=== PATIENT | male | born 1955 | race Caucasian/White ===

== ENCOUNTER 2018-03-01 15:16 | Inpatient (IN) ==
[2018-03-01] MEDS ORDERED: Acetaminophen 325 MG Tablet PO ONE (17:28)
[2018-03-01] MEDS ORDERED: Piperacil/Tazo 4.5 GM Premix 4.5 GM/100 ML BAG IV.SIG STA (17:28)
[2018-03-01] MEDS ORDERED: Sod Chloride 0.9% Inj 1,000 ML IV.SIG SCH ×2 (17:30)
[2018-03-01 17:56] LABS: Bacteria,Urine Many /hpf; Bilirubin,Urine Negative (Negative); Clarity,Urine Hazy (Clear); Color,Urine Amber (Yellw/Straw); Glucose,Urine (UA) Negative (Negative); Hyaline Casts,Urine 1 /lpf (0-3); Leukocyte Esterase,Urine Moderate (Negative); Mucus,Urine Few /lpf (Occasional); Nitrite,Urine Negative (Negative); Specific Gravity,Urine 1.024 (1.002-1.035)
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
[2018-03-01 17:59] LABS: Baso % (Auto) 0.3 % (0.0-2.0); Eos % (Auto) 0.2 % (0.0-4.0); Hematocrit 39.8 % (39.0-51.0); Lymph # (Auto) 1.6 th/mm3 (1.0-4.8); Lymph % (Auto) 13.4 % (9.0-44.0); Mean Corpuscular HGB Conc 35.2 % (32.0-36.0); Mean Corpuscular Hemoglobin 31.2 pg (27.0-34.0); Mean Corpuscular Volume 88.7 fL (80.0-100.0); Mean Platelet Volume 8.6 fL (7.0-11.0); Mono # (Auto) 0.9 th/mm3 (0.0-0.9); Mono % (Auto) 7.6 % (0.0-8.0); Neut # (Auto) 9.5 th/mm3 (1.8-7.7); Neut % (Auto) 78.5 % (16.0-70.0); Platelet Count 224 th/mm3 (150-450); Red Blood Count 4.48 mil/mm3 (4.50-5.90); Red Cell Distribution Width 14.3 % (11.6-17.2)
--- NOTE | 2018-03-01 18:01 | XR ---
EXAM DATE: 03/01/2018 5:51 PM EDT AGE/SEX: 62 years / Male INDICATIONS: Fever. CLINICAL DATA: This is the patient's initial encounter. Patient reports that signs and symptoms have been present for 1 day and indicates a pain score of 0/10. MEDICAL/SURGICAL HISTORY: None. None. COMPARISON: No prior exams available for comparison. FINDINGS: A single AP view of the chest demonstrates the lungs to be symmetrically aerated without evidence of mass, infiltrate or effusion. The cardiomediastinal contours are unremarkable. Osseous structures a re intact. CONCLUSION: Negative examination. Electronically signed by: Alfonso Lujan MD 03/01/2018 6:00 PM EDT
[2018-03-01 18:41] LABS: Albumin 3.2 g/dL (3.4-5.0); Anion Gap 8 meq/L (5-15); Aspartate Aminotransferase 19 U/L (15-37); Blood Urea Nitrogen 29 mg/dL (7-18); Calcium 8.2 mg/dL (8.5-10.1); Carbon Dioxide 24.7 meq/L (21.0-32.0); Chloride 102 meq/L (98-107); Glomerular Filtration Rate 45 mL/min (>89); Glucose,Random 144 mg/dL (74-106); Potassium 3.8 meq/L (3.5-5.1); Sodium 135 meq/L (136-145)
[2018-03-01 18:45] LABS: Alanine Aminotransferase 29 U/L (12-78); Alkaline Phosphatase 84 U/L (45-117); Total Protein 7.1 g/dL (6.4-8.2)
[2018-03-01] MEDS ORDERED: Bisacodyl 10 MG Supp RECTAL PRN (19:53)
[2018-03-01] MEDS ORDERED: Temazepam 15 MG Capsule PO PRN (19:53)
[2018-03-01] MEDS ORDERED: Dextrose 50% in Water 50 ML Vial IV.PUSH PRN (19:53)
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
--- NOTE | 2018-03-01 20:17 | CT ---
EXAM DATE: 03/01/2018 7:28 PM EDT AGE/SEX: 62 years / Male INDICATIONS: Pyelonephritis. CLINICAL DATA: This is the patient's initial encounter. Patient reports that signs and symptoms have been present for 1 day and indicates a pain score of 6/10. MEDICAL/SURGICAL HISTORY: Diabetes. Hypertension. Spinal nerve disorder. . Knee surgery. RADIATION DOSE: 14.61 CTDI (mGy) COMPARISON: No prior exams available for comparison. TECHNIQUE: Multiple contiguous axial images were obtained through the abdomen. Images were obtained using multiple row detector helical technique. Using automated exposure control and adjustment of the mA and/or kV according to patient size, radiation dose was kept as low as reasonably achievable to o btain optimal diagnostic quality images. DICOM format image data is available electronically for rev iew and comparison. FINDINGS: Lung bases are clear except for minimal dependent atelectasis and small calcified granuloma in the ri ght. No acute findings in the liver, spleen, adrenals or pancreas. There is some perinephric fat stranding bilaterally which is nonspecific but could indicate pyeloneph ritis given the history of such. Probable small 1 cm hemorrhagic cyst right kidney. No hydronephrosis . No ureteral or bladder calculi. Escalera catheter is present in the bladder. No pelvic mass or free flui d. CONCLUSION: 1. Nonspecific perinephric fat stranding. Differential diagnosis includes pyelonephritis given the h istory of such. 2. No renal calculi or obstructive uropathy. Escalera catheter in bladder. 3. Mild constipation. Moderate coronary calcifications. Electronically signed by: Alfonso Lujan MD 03/01/2018 8:16 PM EDT
[2018-03-01] MEDS: Senna/Docusate Sodium 8.6/50 MG Tablet PO SCH (21:32)
[2018-03-01] MEDS: Insulin NovoLOG Aspart Correctional Sugar Inj SQ SCH (21:32)
[2018-03-01] MEDS: Sod Chloride 0.9% Inj 1,000 ML IV.CONT SCH (21:39)
[2018-03-01] MEDS: Piperacil/Tazo 4.5 GM Premix 4.5 GM/100 ML BAG IV.SIG SCH (23:20)
[2018-03-02] MEDS: Acetaminophen 325 MG Tablet PO PRN ×3 (01:10→21:11)
[2018-03-02 04:11] LABS: Baso % (Auto) 0.2 % (0.0-2.0); Eos % (Auto) 0.1 % (0.0-4.0); Hematocrit 37.2 % (39.0-51.0); Hemoglobin 12.7 gm/dL (13.0-17.0); Lymph # (Auto) 1.2 th/mm3 (1.0-4.8); Mean Corpuscular Hemoglobin 30.7 pg (27.0-34.0); Mean Corpuscular Volume 90.3 fL (80.0-100.0); Mean Platelet Volume 7.9 fL (7.0-11.0); Neut # (Auto) 7.5 th/mm3 (1.8-7.7); Neut % (Auto) 77.7 % (16.0-70.0); Platelet Count 202 th/mm3 (150-450); Red Blood Count 4.12 mil/mm3 (4.50-5.90); Red Cell Distribution Width 13.4 % (11.6-17.2); White Blood Count 9.6 th/mm3 (4.0-11.0)
[2018-03-02 04:26] LABS: Albumin 3.2 g/dL (3.4-5.0); Anion Gap 11 meq/L (5-15); Aspartate Aminotransferase 21 U/L (15-37); Blood Urea Nitrogen 24 mg/dL (7-18); Calcium 8.5 mg/dL (8.5-10.1); Carbon Dioxide 22.4 meq/L (21.0-32.0); Chloride 101 meq/L (98-107); Glomerular Filtration Rate 52 mL/min (>89); Glucose,Random 183 mg/dL (74-106); Sodium 134 meq/L (136-145)
[2018-03-02 04:27] LABS: Alanine Aminotransferase 30 U/L (12-78)
[2018-03-02 04:30] LABS: Alkaline Phosphatase 88 U/L (45-117); Total Protein 7.4 g/dL (6.4-8.2)
[2018-03-02] MEDS: Piperacil/Tazo 4.5 GM Premix 4.5 GM/100 ML BAG IV.SIG SCH ×4 (05:55→22:27)
[2018-03-02] MEDS: Gabapentin 400 MG Capsule PO SCH ×3 (09:26→17:09)
[2018-03-02] MEDS: Insulin NovoLOG Aspart Correctional Sugar Inj SQ SCH ×4 (09:28→22:28)
[2018-03-02] MEDS: Senna/Docusate Sodium 8.6/50 MG Tablet PO SCH ×2 (10:58→22:29)
--- NOTE | 2018-03-02 14:07 | ECG ---
Date Performed: 03/01/2018 Time Performed: 17:53:58 PTAGE: 62 years EKG: SINUS TACHYCARDIA ABNORMAL RHYTHM ECG Artifact NO PREVIOUS TRACING DOCTOR: Shara Prieto Interpretating Date/Time 03/02/2018 14:07:13
--- NOTE | 2018-03-02 14:41 | P.PN ---
Subjective Interval history: t max 101.2 denies a y nausea, vomiting + chilly sensation had loose stools overnight- was given stool softeners Physical Exam Vital signs: Vital Signs 03/01/18 15:25 03/01/18 17:57 03/01/18 17:58 Temperature 101.1 F H Pulse Rate 93 H 104 H 104 H Respiratory Rate 20 20 Blood Pressure 119/60 146/66 H Pulse Oximetry 97 98 03/01/18 18:20 03/01/18 18:29 03/01/18 18:43 Temperature 100.4 F H Pulse Rate 94 H Respiratory Rate 22 Blood Pressure 141/64 H Pulse Oximetry 97 97 03/01/18 20:00 03/01/18 23:45 03/02/18 00:00 Temperature 98.6 F 101.1 F H Pulse Rate 85 96 H 99 H Respiratory Rate 20 20 Blood Pressure 160/77 H 180/81 H Pulse Oximetry 98 97 03/02/18 04:00 03/02/18 04:08 03/02/18 08:00 Temperature 98.9 F 99.4 F Pulse Rate 90 93 H 91 H Respiratory Rate 18 20 Blood Pressure 158/79 H 155/72 H Pulse Oximetry 92 L 97 03/02/18 12:00 Temperature 101.2 F H Pulse Rate 93 H Respiratory Rate 20 Blood Pressure 169/77 H Pulse Oximetry 96 Intake & Output 03/01/18 03/02/18 03/02/18 18:59 06:59 18:59 Intake Total 2099 / 2100 580 / 580 1200 / 1200 Output Total 1100 / 1100 Balance 2099 / 2099 -520 / -520 1200 / 1200 Weight 95.254 kg 95.9 kg Intake: IV 2100 / 2100 100 / 100 1200 / 1200 NS Inj 1,000 ML @ 100 mls/hr IV 1000 / 1000 .CONT .Q10H JOSE Rx#:[id number] Zosyn 4.5 GM Premix 4.5 gm In 100 / 100 100 / 100 200 / 200 100 ml @ 200 mls/hr IV.SIG Q6H JOSE Rx#:[id number] NS Inj 1,000 ML @ Wide Open IV. 1999 / 1999 SIG .Q0M JOSE Rx#:[id number] Oral 480 / 480 Output: Urine Amount (Catheter) 1099 / 1099 Indwelling Urethral Catheter 1099 / 1099 Other: Weight On Admission 95.9 kg Narrative: awake and alert, no acute distress T max 101 anixcteric lungs- no rales regualr rhythm abdomen soft, nontender abdomen soft, no CVA tenderness circumcised penis- rios in place neuro exma- unremarkable - Urinary Catheter Management Indwelling Urethral Catheter Cath placed during this visit: yes Reason for continuing: Acute urinary retention Insertion date: 03/01/18 Insertion time: 17:59 Results - Labs CBC & Chem 7: 03/02/18 03:50 03/02/18 03:50 Laboratory Results - last 24 hr 03/01/18 03/01/18 03/01/18 17:30 17:34 18:15 WBC 12.0 H RBC 4.48 L Hgb 14.0 Hct 39.8 MCV 88.7 MCH 31.2 MCHC 35.2 RDW 14.3 Plt Count 224 MPV 8.6 Neut % (Auto) 78.5 H Lymph % (Auto) 13.4 Gordon % (Auto) 7.6 Eos % (Auto) 0.2 Baso % (Auto) 0.3 Neut # (Auto) 9.5 H Lymph # (Auto) 1.6 Gordon # (Auto) 0.9 Eos # (Auto) 0.0 Baso # (Auto) 0.0 WBC Differential . Differential Comment Auto diff final Sodium 135 L Potassium 3.8 Chloride 102 Carbon Dioxide 24.7 Anion Gap 8 BUN 29 H Creatinine 1.56 H Estimated GFR 45 L POC Glucose Random Glucose 144 H Lactic Acid Calcium 8.2 L Total Bilirubin 0.7 AST 19 ALT 29 Alkaline Phosphatase 84 Total Protein 7.1 Albumin 3.2 L Urine Color Iva Urine Clarity Hazy H Urine pH 5.0 Ur Specific [place] 1.024 Urine Protein 30 H Urine Glucose (UA) Negative Urine Ketones Trace Urine Occult Blood Moderate H Urine Nitrate Negative Urine Bilirubin Negative Urine Urobilinogen 2.0 H Ur Leukocyte Esterase Moderate H Urine RBC 5 H Urine WBC 51 H Urine WBC Clumps Few H Urine Bacteria Many H Hyaline Casts 1 Urine Mucus Few H Micro UA Comment Cath-culture ind Urine Culture Comments Cath-cult indicated 03/01/18 03/02/18 03/02/18 18:15 03:50 03:50 WBC 9.6 RBC 4.12 L Hgb 12.7 L Hct 37.2 L MCV 90.3 MCH 30.7 MCHC 34.0 RDW 13.4 Plt Count 202 MPV 7.9 Neut % (Auto) 77.7 H Lymph % (Auto) 12.0 Gordon % (Auto) 10.0 H Eos % (Auto) 0.1 Baso % (Auto) 0.2 Neut # (Auto) 7.5 Lymph # (Auto) 1.2 Gordon # (Auto) 1.0 H Eos # (Auto) 0.0 Baso # (Auto) 0.0 WBC Differential . Differential Comment Auto diff final Sodium 134 L Potassium 4.0 Chloride 101 Carbon Dioxide 22.4 Anion Gap 11 BUN 24 H Creatinine 1.38 H Estimated GFR 52 L POC Glucose Random Glucose 183 H Lactic Acid 1.5 Calcium 8.5 Total Bilirubin 0.6 AST 21 ALT 30 Alkaline Phosphatase 88 Total Protein 7.4 Albumin 3.2 L Urine Color Urine Clarity Urine pH Ur Specific [place] Urine Protein Urine Glucose (UA) Urine Ketones Urine Occult Blood Urine Nitrate Urine Bilirubin Urine Urobilinogen Ur Leukocyte Esterase Urine RBC Urine WBC Urine WBC Clumps Urine Bacteria Hyaline Casts Urine Mucus Micro UA Comment Urine Culture Comments 03/02/18 12:03 WBC RBC Hgb Hct MCV MCH MCHC RDW Plt Count MPV Neut % (Auto) Lymph % (Auto) Gordon % (Auto) Eos % (Auto) Baso % (Auto) Neut # (Auto) Lymph # (Auto) [place] # (Auto) Eos # (Auto) Baso # (Auto) WBC Differential Differential Comment Sodium Potassium Chloride Carbon Dioxide Anion Gap BUN Creatinine Estimated GFR POC Glucose 261 H Random Glucose Lactic Acid Calcium Total Bilirubin AST ALT Alkaline Phosphatase Total Protein Albumin Urine Color Urine Clarity Urine pH Ur Specific [place] Urine Protein Urine Glucose (UA) Urine Ketones Urine Occult Blood Urine Nitrate Urine Bilirubin Urine Urobilinogen Ur Leukocyte Esterase Urine RBC Urine WBC Urine WBC Clumps Urine Bacteria Hyaline Casts Urine Mucus Micro UA Comment Urine Culture Comments Microbiology 03/01/18 17:30 Catheterized Urine Urine Culture - Preliminary Staphylococcus species 03/01/18 17:24 Blood - Peripheral Aerobic Blood Culture - Preliminary No growth in 1 day 03/01/18 17:24 Blood - Peripheral Anaerobic Blood Culture - Preliminary No growth in 1 day 03/01/18 17:34 Blood - Peripheral Aerobic Blood Culture - Preliminary No growth in 1 day 03/01/18 17:34 Blood - Peripheral Anaerobic Blood Culture - Preliminary No growth in 1 day - Imaging Impressions Chest X-Ray 03/01/18 17:28 CONCLUSION: Negative examination. Abdomen/Pelvis CT 03/01/18 19:05 CONCLUSION: 1. Nonspecific perinephric fat stranding. Differential diagnosis includes pyelonephritis given the history of such. 2. No renal calculi or obstructive uropathy. Rios catheter in bladder. 3. Mild constipation. Moderate coronary calcifications. Assessment and Plan - Assessment (1) SIRS (systemic inflammatory response syndrome) Code(s): R65.10 - Systemic inflammatory response syndrome (SIRS) of non- infectious origin without acute organ dysfunction Status: Acute (2) Acute pyelonephritis Code(s): N10 - Acute pyelonephritis Status: Acute (3) PARVEZ (acute kidney injury) Code(s): N17.9 - Acute kidney failure, unspecified Status: Acute (4) DM (diabetes mellitus) Code(s): E11.9 - Type 2 diabetes mellitus without complications Status: Acute - Plan 62 years old male SIRS secondary to UTI- History of neurogenic bladder- per patient doing self cathetrization at least 10x day for last 2 years- sterile technique- had only 1 episode of UTI since he has been doing this he is ff by a Urologist at [place]- - ff blood cultuires - ff urine culture c and S- staph speciesS - continue IV Zosyn Pyelonephritis: CT Abd/Pelvis w/ perinephric stranding consistent w/ pyelo, - IVF, follow up cultures, continue IV Abx. PARVEZ:likelywith underlying CKI- Creatinine 1.56, no previous labs for comparison, continue IVF- ff labs History of DM. Ff blood sugars. check A1C DVT Prophylaxis: SCD/Teds Social work for d/c planning as needed Case discussed w/ ER physician at length, labs/records/imaging reviewed by me.
[2018-03-03] MEDS ORDERED: Morphine Inj 4 MG/ML Vial IV.PUSH PRN (03:29)
[2018-03-03] MEDS: Piperacil/Tazo 4.5 GM Premix 4.5 GM/100 ML BAG IV.SIG SCH ×4 (06:01→22:59)
[2018-03-03] MEDS: Sod Chloride 0.9% Inj 1,000 ML IV.CONT SCH (06:02)
[2018-03-03] MEDS: Gabapentin 400 MG Capsule PO SCH ×3 (09:50→17:31)
[2018-03-03] MEDS: Insulin NovoLOG Aspart Correctional Sugar Inj SQ SCH ×4 (09:52→21:37)
--- NOTE | 2018-03-03 12:06 | P.PN ---
Subjective Interval history: had Tmax 101 last evening overall feeling better Physical Exam Vital signs: Vital Signs 03/02/18 16:00 03/02/18 20:00 03/02/18 21:10 Temperature 98.4 F 101.4 F H Pulse Rate 93 H 86 84 Respiratory Rate 20 20 Blood Pressure 179/81 H 157/75 H Pulse Oximetry 96 96 03/03/18 00:00 03/03/18 04:00 03/03/18 08:00 Temperature 98.9 F 98.2 F 97.8 F Pulse Rate 84 77 71 Respiratory Rate 18 18 20 Blood Pressure 152/73 H 140/64 131/71 Pulse Oximetry 96 96 97 Intake & Output 03/02/18 03/03/18 03/03/18 18:59 06:59 18:59 Intake Total 1860 / 1860 740 / 740 100 / 100 Output Total 1550 / 1550 1000 / 1000 Balance 310 / 310 -260 / -260 100 / 100 Weight 97.4 kg Intake: IV 1300 / 1300 100 / 100 100 / 100 NS Inj 1,000 ML @ 100 mls/hr IV 1000 / 1000 .CONT .Q10H JOSE Rx#:[id number] Zosyn 4.5 GM Premix 4.5 gm In 300 / 300 100 / 100 100 / 100 100 ml @ 200 mls/hr IV.SIG Q6H JOSE Rx#:[id number] Oral 560 / 560 640 / 640 Output: Urine 950 / 950 Stool 50 / 50 Urine Amount (Catheter) 1550 / 1550 Indwelling Urethral Catheter 1550 / 1550 Other: Date of Last Bowel Movement 03/03/18 # Bowel Movements 2 Narrative: awake and alert, no acute distress T max 101 anicteric lungs- no rales regualr rhythm abdomen soft, nontender abdomen soft, no CVA tenderness circumcised penis- rios in place neuro exma- unremarkable - Urinary Catheter Management Indwelling Urethral Catheter Cath placed during this visit: yes Reason for continuing: Acute urinary retention Insertion date: 03/01/18 Insertion time: 17:59 Results - Labs CBC & Chem 7: 03/02/18 03:50 03/02/18 03:50 Laboratory Results - last 24 hr 03/01/18 03/01/18 03/02/18 17:30 21:31 12:03 POC Glucose 147 H 261 H Urine Color Iva Urine Clarity Hazy H Urine pH 5.0 Ur Specific [place] 1.024 Urine Protein 30 H Urine Glucose (UA) Negative Urine Ketones Trace Urine Occult Blood Moderate H Urine Nitrate Negative Urine Bilirubin Negative Urine Urobilinogen 2.0 H Ur Leukocyte Esterase Moderate H Urine RBC 5 H Urine WBC 51 H Urine WBC Clumps Few H Urine Bacteria Many H Hyaline Casts 1 Urine Mucus Few H Micro UA Comment Cath-culture ind Urine Culture Comments Cath-cult indicated 03/02/18 03/02/18 18:38 21:09 POC Glucose 197 H 454 H* Urine Color Urine Clarity Urine pH Ur Specific [place] Urine Protein Urine Glucose (UA) Urine Ketones Urine Occult Blood Urine Nitrate Urine Bilirubin Urine Urobilinogen Ur Leukocyte Esterase Urine RBC Urine WBC Urine WBC Clumps Urine Bacteria Hyaline Casts Urine Mucus Micro UA Comment Urine Culture Comments Microbiology 03/01/18 17:24 Blood - Peripheral Aerobic Blood Culture - Preliminary No growth in 2 days 03/01/18 17:24 Blood - Peripheral Anaerobic Blood Culture - Preliminary No growth in 2 days 03/01/18 17:34 Blood - Peripheral Aerobic Blood Culture - Preliminary No growth in 2 days 03/01/18 17:34 Blood - Peripheral Anaerobic Blood Culture - Preliminary No growth in 2 days 03/01/18 17:30 Catheterized Urine Urine Culture - Preliminary Staphylococcus species Assessment and Plan - Assessment (1) SIRS (systemic inflammatory response syndrome) Code(s): R65.10 - Systemic inflammatory response syndrome (SIRS) of non- infectious origin without acute organ dysfunction Status: Acute (2) Acute pyelonephritis Code(s): N10 - Acute pyelonephritis Status: Acute (3) PARVEZ (acute kidney injury) Code(s): N17.9 - Acute kidney failure, unspecified Status: Acute (4) DM (diabetes mellitus) Code(s): E11.9 - Type 2 diabetes mellitus without complications Status: Acute - Plan 62 years old male SIRS secondary to UTI- History of neurogenic bladder- per patient doing self cathetrization at least 10x day for last 2 years- sterile technique- had only 1 episode of UTI since he has been doing this he is ff by a Urologist at [place]- . ctonine on flomax - ff blood cultuires - ff urine culture c and S- staph speciesS - continue IV Zosyn Pyelonephritis: CT Abd/Pelvis w/ perinephric stranding consistent w/ pyelo, - IVF, follow up cultures- pending , continue IV Abx. PARVEZ:likelywith underlying CKI- Creatinine 1.56, no previous labs for comparison, continue IVF- ff labs DM insulin requiring- uncontrolled . Ff blood sugars. check A1C- per patient last one 7.2 as OP on Lantus- 30 units bid and glipizide 5 mg bid. will start on Levemer 15 bid here bid Hx of hyerplipideia - cotninue on Rosuvastatin 10 mg hs Hist ory of DM neuropathy- continue Gabapentin 400 mg tid chronic pain- as OP on Percoet 10 prn for pain q 8 History of hyperlipidemia- continue on his rosuvastatin hs DVT Prophylaxis: SCD/Teds Social work for d/c planning as needed PCP_ Dr. scott - [place]
[2018-03-03] MEDS: Senna/Docusate Sodium 8.6/50 MG Tablet PO SCH ×2 (12:07→21:37)
[2018-03-03 14:33] LABS: Baso % (Auto) 0.2 % (0.0-2.0); Eos # (Auto) 0.1 th/mm3 (0.0-0.4); Eos % (Auto) 1.3 % (0.0-4.0); Hematocrit 36.6 % (39.0-51.0); Hemoglobin 12.3 gm/dL (13.0-17.0); Lymph # (Auto) 1.2 th/mm3 (1.0-4.8); Lymph % (Auto) 16.5 % (9.0-44.0); Mean Corpuscular HGB Conc 33.7 % (32.0-36.0); Mean Corpuscular Hemoglobin 30.3 pg (27.0-34.0); Mean Corpuscular Volume 89.9 fL (80.0-100.0); Mono # (Auto) 0.6 th/mm3 (0.0-0.9); Neut # (Auto) 5.3 th/mm3 (1.8-7.7); Platelet Count 220 th/mm3 (150-450); Red Blood Count 4.07 mil/mm3 (4.50-5.90); Red Cell Distribution Width 13.3 % (11.6-17.2); White Blood Count 7.2 th/mm3 (4.0-11.0)
[2018-03-03 14:53] LABS: Calcium 8.7 mg/dL (8.5-10.1); Carbon Dioxide 28.2 meq/L (21.0-32.0); Potassium 4.1 meq/L (3.5-5.1)
[2018-03-03] MEDS: Enoxaparin Inj 30 MG/0.3 ML Syringe SQ SCH (17:35)
[2018-03-03] MEDS ORDERED: Insulin Detemir Inj 1,000 UNIT/10 ML Vial SQ SCH (21:00)
[2018-03-03] MEDS: Insulin Detemir Inj 1,000 UNIT/10 ML Vial SQ SCH (21:36)
[2018-03-04] MEDS: Piperacil/Tazo 4.5 GM Premix 4.5 GM/100 ML BAG IV.SIG SCH ×4 (05:01→23:17)
[2018-03-04] MEDS: Sod Chloride 0.9% Inj 1,000 ML IV.CONT SCH (05:01)
[2018-03-04] MEDS: Enoxaparin Inj 30 MG/0.3 ML Syringe SQ SCH (08:55)
[2018-03-04] MEDS: Gabapentin 400 MG Capsule PO SCH ×3 (08:55→17:18)
[2018-03-04] MEDS: Senna/Docusate Sodium 8.6/50 MG Tablet PO SCH ×2 (08:56→20:34)
[2018-03-04] MEDS: Insulin NovoLOG Aspart Correctional Sugar Inj SQ SCH ×4 (08:56→20:38)
[2018-03-04] MEDS: Insulin Detemir Inj 1,000 UNIT/10 ML Vial SQ SCH ×2 (08:56→20:38)
--- NOTE | 2018-03-04 10:25 | P.PN ---
Subjective Interval history: T down- last spike was 8/5- 10 pm no complains some loose stools Physical Exam Vital signs: Vital Signs 03/03/18 12:00 03/03/18 16:00 03/03/18 20:00 Temperature 98.1 F 98.1 F 98.7 F Pulse Rate 80 79 77 Respiratory Rate 20 20 18 Blood Pressure 135/65 148/70 H 127/62 Pulse Oximetry 97 97 96 03/04/18 00:00 03/04/18 04:00 03/04/18 08:00 Temperature 98 F 98.8 F 98.1 F Pulse Rate 86 84 65 Respiratory Rate 20 18 20 Blood Pressure 148/72 H 154/82 H 144/76 H Pulse Oximetry 97 96 95 03/04/18 10:06 Temperature Pulse Rate Respiratory Rate Blood Pressure Pulse Oximetry 95 Intake & Output 03/03/18 03/04/18 03/04/18 18:59 06:59 18:59 Intake Total 1780 / 1780 680 / 680 Output Total 1500 / 1500 Balance 280 / 280 680 / 680 Weight 96 kg Intake: IV 1300 / 1300 200 / 200 NS Inj 1,000 ML @ 100 mls/hr IV 1000 / 1000 .CONT .Q10H JOSE Rx#:[id number] Zosyn 4.5 GM Premix 4.5 gm In 300 / 300 200 / 200 100 ml @ 200 mls/hr IV.SIG Q6H JOSE Rx#:[id number] Oral 480 / 480 480 / 480 Output: Urine Amount (Catheter) 1500 / 1500 Indwelling Urethral Catheter 1500 / 1500 Other: # Voids 3 Date of Last Bowel Movement 03/04/18 Narrative: awake and alert, no acute distress T down anicteric lungs- no rales regular rhythm abdomen soft, nontender abdomen soft, no CVA tenderness circumcised penis- neuro exam- unremarkable - Urinary Catheter Management Indwelling Urethral Catheter Cath placed during this visit: yes, but has since been removed by the nurse Reason for continuing: Chronic Urinary Retention Insertion date: 03/01/18 Insertion time: 17:59 Removal date: 03/03/18 Removal time: 17:30 Results - Labs CBC & Chem 7: 03/03/18 13:34 03/05/18 06:43 Laboratory Results - last 24 hr 03/03/18 03/03/18 03/03/18 12:09 13:34 13:34 WBC 7.2 RBC 4.07 L Hgb 12.3 L Hct 36.6 L MCV 89.9 MCH 30.3 MCHC 33.7 RDW 13.3 Plt Count 220 MPV 8.0 Neut % (Auto) 73.0 H Lymph % (Auto) 16.5 Rains % (Auto) 9.0 H Eos % (Auto) 1.3 Baso % (Auto) 0.2 Neut # (Auto) 5.3 Lymph # (Auto) 1.2 Rains # (Auto) 0.6 Eos # (Auto) 0.1 Baso # (Auto) 0.0 WBC Differential . Differential Comment Auto diff final Sodium 135 L Potassium 4.1 Chloride 102 Carbon Dioxide 28.2 Anion Gap 5 BUN 16 Creatinine 1.29 Estimated GFR 56 L POC Glucose 241 H Random Glucose 219 H Calcium 8.7 03/03/18 03/03/18 03/04/18 17:31 20:02 05:01 WBC RBC Hgb Hct MCV MCH MCHC RDW Plt Count MPV Neut % (Auto) Lymph % (Auto) Rains % (Auto) Eos % (Auto) Baso % (Auto) Neut # (Auto) Lymph # (Auto) Rains # (Auto) Eos # (Auto) Baso # (Auto) WBC Differential Differential Comment Sodium Potassium Chloride Carbon Dioxide Anion Gap BUN Creatinine Estimated GFR POC Glucose 202 H 272 H 196 H Random Glucose Calcium 03/04/18 07:45 WBC RBC Hgb Hct MCV MCH MCHC RDW Plt Count MPV Neut % (Auto) Lymph % (Auto) [place] % (Auto) Eos % (Auto) Baso % (Auto) Neut # (Auto) Lymph # (Auto) Rains # (Auto) Eos # (Auto) Baso # (Auto) WBC Differential Differential Comment Sodium Potassium Chloride Carbon Dioxide Anion Gap BUN Creatinine Estimated GFR POC Glucose 186 H Random Glucose Calcium Microbiology 03/01/18 17:30 Catheterized Urine Urine Culture - Final Staphylococcus saprophyticus 03/01/18 17:24 Blood - Peripheral Aerobic Blood Culture - Preliminary No growth in 2 days 03/01/18 17:24 Blood - Peripheral Anaerobic Blood Culture - Preliminary No growth in 2 days 03/01/18 17:34 Blood - Peripheral Aerobic Blood Culture - Preliminary No growth in 2 days 03/01/18 17:34 Blood - Peripheral Anaerobic Blood Culture - Preliminary No growth in 2 days - Imaging Impressions Chest X-Ray 03/01/18 17:28 CONCLUSION: Negative examination. Abdomen/Pelvis CT 03/01/18 19:05 CONCLUSION: 1. Nonspecific perinephric fat stranding. Differential diagnosis includes pyelonephritis given the history of such. 2. No renal calculi or obstructive uropathy. Escalera catheter in bladder. 3. Mild constipation. Moderate coronary calcifications. Assessment and Plan - Assessment (1) SIRS (systemic inflammatory response syndrome) Code(s): R65.10 - Systemic inflammatory response syndrome (SIRS) of non- infectious origin without acute organ dysfunction Status: Acute (2) Acute pyelonephritis Code(s): N10 - Acute pyelonephritis Status: Acute (3) PARVEZ (acute kidney injury) Code(s): N17.9 - Acute kidney failure, unspecified Status: Acute (4) DM (diabetes mellitus) Code(s): E11.9 - Type 2 diabetes mellitus without complications Status: Acute - Plan 62 years old male SIRS secondary to UTI- History of neurogenic bladder- per patient doing self cathetrization at least 10x day for last 2 years- sterile technique- had only 1 episode of UTI since he has been doing this now when discussed with him- he wash his hands and straights cath but does not use gloves he is ff by a Urologist at [place]- . continue on flomax - ff blood cultuires - ff urine culture c and S- staph speciesS - continue IV Zosyn - get ID consult for recommendations- on po anitibotics send repeat UA now- straight cath specimen- nurse to do it Pyelonephritis: CT Abd/Pelvis w/ perinephric stranding consistent w/ pyelo, - IVF, follow up cultures- pending , continue IV Abx. ID consult PARVEZ:likely with underlying CKI- Creatinine 1.56, no previous labs for comparison, good po. Heplock IVF DM insulin requiring- uncontrolled . Ff blood sugars. check A1C- per patient last one 7.2 as OP on Lantus- 30 units bid and glipizide 5 mg bid. will start on Levemer 15 bid here bid Hx of hyerplipidemia - cotninue on Rosuvastatin 10 mg hs Hist ory of DM neuropathy- continue Gabapentin 400 mg tid chronic pain- as OP on Percoet 10 prn for pain q 8 History of hyperlipidemia- continue on his rosuvastatin hs Loose stools- check C diff start Lactinex- possible ab associated diarreha DVT Prophylaxis: SCD/Teds Social work for d/c planning as needed PCP_ Dr. scott - [place]
[2018-03-04] MEDS: Lactobacillus Acidophilus/L. Spores Tablet PO SCH ×2 (10:59→20:36)
[2018-03-04 12:09] LABS: Bilirubin,Urine Negative (Negative); Clarity,Urine Clear (Clear); Color,Urine Yellow (Yellw/Straw); Glucose,Urine (UA) 500 mg/dL (Negative); Leukocyte Esterase,Urine Trace (Negative); Nitrite,Urine Negative (Negative); PH,Urine 6.5 (5.0-8.5); Urobilinogen,Urine 0.2 mg/dL (Less than 2)
[2018-03-04 12:15] LABS: Specific Gravity,Urine 1.017 (1.002-1.035)
[2018-03-04 13:20] LABS: RBC,Urine 0-3 /hpf (0-3); WBC,Urine 0-5 /hpf (0-5)
[2018-03-04 13:21] LABS: Amorphous Sediment,Urine Rare /hpf
[2018-03-04 16:23] LABS: Hemoglobin A1c 6.6 % (4.3-6.0)
[2018-03-04] MEDS: Acetaminophen 325 MG Tablet PO PRN (20:33)
[2018-03-05] MEDS: Piperacil/Tazo 4.5 GM Premix 4.5 GM/100 ML BAG IV.SIG SCH ×4 (06:02→22:36)
[2018-03-05 07:36] LABS: Calcium 8.8 mg/dL (8.5-10.1); Carbon Dioxide 28.7 meq/L (21.0-32.0); Potassium 3.7 meq/L (3.5-5.1)
[2018-03-05] MEDS: Gabapentin 400 MG Capsule PO SCH ×3 (08:40→17:25)
[2018-03-05] MEDS: Lactobacillus Acidophilus/L. Spores Tablet PO SCH ×2 (08:40→20:58)
[2018-03-05] MEDS: Enoxaparin Inj 30 MG/0.3 ML Syringe SQ SCH (08:41)
[2018-03-05] MEDS: Senna/Docusate Sodium 8.6/50 MG Tablet PO SCH ×2 (08:41→20:58)
[2018-03-05] MEDS: Insulin Detemir Inj 1,000 UNIT/10 ML Vial SQ SCH ×2 (08:41→21:01)
[2018-03-05] MEDS: Insulin NovoLOG Aspart Correctional Sugar Inj SQ SCH ×4 (08:43→21:02)
[2018-03-05] MEDS: Acetaminophen 325 MG Tablet PO PRN (08:53)
--- NOTE | 2018-03-05 09:13 | P.PN ---
Subjective Interval history: spoked a fever of 100.9- last evening clinically well repeat UA - clear Physical Exam Vital signs: Vital Signs 03/04/18 10:06 03/04/18 12:00 03/04/18 15:47 Temperature 98.1 F 98.5 F Pulse Rate 56 L 81 Respiratory Rate 20 20 Blood Pressure 164/79 H 158/72 H Pulse Oximetry 95 97 96 03/04/18 20:00 03/05/18 00:00 03/05/18 06:00 Temperature 100.9 F H 98 F 97.5 F L Pulse Rate 84 67 77 Respiratory Rate 16 16 16 Blood Pressure 153/68 H 121/62 121/64 Pulse Oximetry 96 96 97 Intake & Output 03/04/18 03/05/18 03/05/18 18:59 06:59 18:59 Intake Total 1560 / 1560 920 / 920 Output Total 375 / 375 1300 / 1300 Balance 1185 / 1185 -380 / -380 Weight 95.2 kg Intake: IV 1000 / 1000 200 / 200 NS Inj 1,000 ML @ 100 mls/hr IV 800 / 800 .CONT .Q10H JOSE Rx#:[id number] Zosyn 4.5 GM Premix 4.5 gm In 200 / 200 200 / 200 100 ml @ 200 mls/hr IV.SIG Q6H JOSE Rx#:[id number] Oral 560 / 560 720 / 720 Output: Urine 1300 / 1300 Urine Amount (Catheter) 375 / 375 Indwelling Urethral Catheter 375 / 375 Other: Date of Last Bowel Movement 03/04/18 # Bowel Movements 0 Narrative: awake and alert, no acute distress anicteric lungs- no rales regular rhythm abdomen soft, nontender abdomen soft, no CVA tenderness circumcised penis- neuro exam- unremarkable - Urinary Catheter Management Indwelling Urethral Catheter Cath placed during this visit: yes, but has since been removed by the nurse Reason for continuing: Chronic Urinary Retention Insertion date: 03/01/18 Insertion time: 17:59 Removal date: 03/03/18 Removal time: 17:30 Results - Labs CBC & Chem 7: 03/03/18 13:34 03/05/18 06:43 Laboratory Results - last 24 hr 03/03/18 03/04/18 03/04/18 13:34 11:33 11:33 Sodium Potassium Chloride Carbon Dioxide Anion Gap BUN Creatinine Estimated GFR POC Glucose Random Glucose Hemoglobin A1c 6.6 H Calcium Urine Color Yellow Urine Clarity Clear Urine pH 6.5 Ur Specific [place] 1.017 Urine Protein Trace Urine Glucose (UA) 500 H Urine Ketones Negative Urine Occult Blood Trace Urine Nitrate Negative Urine Bilirubin Negative Urine Urobilinogen 0.2 Ur Leukocyte Esterase Trace Urine RBC 0-3 Urine WBC 0-5 Amorphous Sediment Rare H Micro UA Comment Cath-culture not ind Urine Culture Comments Cath-cult not ind Stl C.difficile Tox PCR Negative St C. diff Tox Epid 027 Negative 03/04/18 03/04/18 03/04/18 11:37 16:53 19:54 Sodium Potassium Chloride Carbon Dioxide Anion Gap BUN Creatinine Estimated GFR POC Glucose 243 H 267 H 275 H Random Glucose Hemoglobin A1c Calcium Urine Color Urine Clarity Urine pH Ur Specific [place] Urine Protein Urine Glucose (UA) Urine Ketones Urine Occult Blood Urine Nitrate Urine Bilirubin Urine Urobilinogen Ur Leukocyte Esterase Urine RBC Urine WBC Amorphous Sediment Micro UA Comment Urine Culture Comments Stl C.difficile Tox PCR St C. diff Tox Epid 027 03/05/18 03/05/18 06:43 08:42 Sodium 136 Potassium 3.7 Chloride 101 Carbon Dioxide 28.7 Anion Gap 6 BUN 11 Creatinine 1.24 Estimated GFR 59 L POC Glucose 136 H Random Glucose 140 H Hemoglobin A1c Calcium 8.8 Urine Color Urine Clarity Urine pH Ur Specific [place] Urine Protein Urine Glucose (UA) Urine Ketones Urine Occult Blood Urine Nitrate Urine Bilirubin Urine Urobilinogen Ur Leukocyte Esterase Urine RBC Urine WBC Amorphous Sediment Micro UA Comment Urine Culture Comments Stl C.difficile Tox PCR St C. diff Tox Epid 027 Microbiology 03/01/18 17:24 Blood - Peripheral Aerobic Blood Culture - Preliminary No growth in 3 days 03/01/18 17:24 Blood - Peripheral Anaerobic Blood Culture - Preliminary No growth in 3 days 03/01/18 17:34 Blood - Peripheral Aerobic Blood Culture - Preliminary No growth in 3 days 03/01/18 17:34 Blood - Peripheral Anaerobic Blood Culture - Preliminary No growth in 3 days Assessment and Plan - Assessment (1) SIRS (systemic inflammatory response syndrome) Code(s): R65.10 - Systemic inflammatory response syndrome (SIRS) of non- infectious origin without acute organ dysfunction Status: Acute (2) Acute pyelonephritis Code(s): N10 - Acute pyelonephritis Status: Acute (3) PARVEZ (acute kidney injury) Code(s): N17.9 - Acute kidney failure, unspecified Status: Acute (4) DM (diabetes mellitus) Code(s): E11.9 - Type 2 diabetes mellitus without complications Status: Acute - Plan 62 years old male SIRS secondary to UTI- culture- S. saprophyticus species History of neurogenic bladder- per patient doing self cathetrization at least 10x day for last 2 years- sterile technique- had only 1 episode of UTI since he has been doing this now when discussed with him- he wash his hands and straights cath but does not use gloves he is ff by a Urologist at [place]- . continue on flomax - ff blood cultuires- negative so far - ff urine culture c and S- staph speciesS - continue IV Zosyn - get ID consult for recommendations- - repeat UA- 03/04- cleared up Pyelonephritis: CT Abd/Pelvis w/ perinephric stranding consistent w/ pyelo, - IVF continue IV Abx. ID consulted for recommendations New Fever 100.6- clinically well repeat UA negative lungs- clear monitor IS hourly PARVEZ:likely with underlying CKI- Creatinine 1.56, no previous labs for comparison, good po. Heplock IVF DM insulin requiring- uncontrolled . Ff blood sugars. check A1C- 6.6 as OP on Lantus- 30 units bid and glipizide 5 mg bid. started on Levemer 15 bid here bid - increase to 20 units bid today 8/7 Hx of hyerplipidemia - cotninue on Rosuvastatin 10 mg hs Hist ory of DM neuropathy- continue Gabapentin 400 mg tid chronic pain- as OP on Percoet 10 prn for pain q 8 History of hyperlipidemia- continue on his rosuvastatin hs Loose stools- check C diff- negative start Lactinex- possible ab associated diarreha DVT Prophylaxis: SCD/Teds Social work for d/c planning as needed PCP_ Dr. scott - [place]
[2018-03-05 21:34] VITALS: RESP 18
[2018-03-06] MEDS: Piperacil/Tazo 4.5 GM Premix 4.5 GM/100 ML BAG IV.SIG SCH ×2 (04:20→12:09)
[2018-03-06 05:24] VITALS: BP 129/73; PULSE 70; TEMP 98.1; O2SAT 95
[2018-03-06] MEDS: Enoxaparin Inj 30 MG/0.3 ML Syringe SQ SCH (08:53)
[2018-03-06] MEDS: Gabapentin 400 MG Capsule PO SCH ×2 (08:53→12:10)
[2018-03-06] MEDS: Lactobacillus Acidophilus/L. Spores Tablet PO SCH (08:53)
[2018-03-06] MEDS: Insulin Detemir Inj 1,000 UNIT/10 ML Vial SQ SCH (08:54)
[2018-03-06] MEDS: Insulin NovoLOG Aspart Correctional Sugar Inj SQ SCH ×2 (08:54→12:09)
[2018-03-06] MEDS: Senna/Docusate Sodium 8.6/50 MG Tablet PO SCH (08:55)
--- NOTE | 2018-03-06 09:44 | P.PN ---
Subjective Interval history: doing very well afebrile last 48 hours no flank pain good po no diarrhea Physical Exam Vital signs: Vital Signs 03/05/18 16:00 03/05/18 20:00 03/06/18 00:00 Temperature 98.0 F 98.1 F 98.2 F Pulse Rate 70 78 68 Respiratory Rate 16 18 18 Blood Pressure 164/76 H 164/77 H 132/74 Pulse Oximetry 97 95 96 03/06/18 04:00 Temperature 98.1 F Pulse Rate 70 Respiratory Rate 18 Blood Pressure 129/73 Pulse Oximetry 95 Intake & Output 03/05/18 03/06/18 03/06/18 18:59 06:59 18:59 Intake Total 660 / 660 320 / 320 Output Total 1500 / 1500 Balance 660 / 660 -1180 / -1180 Weight 93.7 kg Intake: IV 200 / 200 200 / 200 Zosyn 4.5 GM Premix 4.5 gm In 200 / 200 200 / 200 100 ml @ 200 mls/hr IV.SIG Q6H JOSE Rx#:[id number] Oral 460 / 460 120 / 120 Output: Urine 1500 / 1500 Other: # Voids 5 Date of Last Bowel Movement 03/06/18 # Bowel Movements 1 3 Narrative: awake and alert, no acute distress T down anicteric lungs- no rales regular rhythm abdomen soft, nontender abdomen soft, no CVA tenderness circumcised penis- neuro exam- unremarkable - Urinary Catheter Management Indwelling Urethral Catheter Cath placed during this visit: yes, but has since been removed by the nurse Reason for continuing: Chronic Urinary Retention Insertion date: 03/01/18 Insertion time: 17:59 Removal date: 03/03/18 Removal time: 17:30 Results - Labs CBC & Chem 7: 03/03/18 13:34 03/05/18 06:43 Laboratory Results - last 24 hr 03/05/18 03/05/18 03/05/18 11:54 17:26 20:04 POC Glucose 204 H 208 H 285 H 03/06/18 07:52 POC Glucose 150 H Microbiology 03/01/18 17:24 Blood - Peripheral Aerobic Blood Culture - Preliminary No growth in 4 days 03/01/18 17:24 Blood - Peripheral Anaerobic Blood Culture - Preliminary No growth in 4 days 03/01/18 17:34 Blood - Peripheral Aerobic Blood Culture - Preliminary No growth in 4 days 03/01/18 17:34 Blood - Peripheral Anaerobic Blood Culture - Preliminary No growth in 4 days Assessment and Plan - Assessment (1) SIRS (systemic inflammatory response syndrome) Code(s): R65.10 - Systemic inflammatory response syndrome (SIRS) of non- infectious origin without acute organ dysfunction Status: Acute (2) Acute pyelonephritis Code(s): N10 - Acute pyelonephritis Status: Acute (3) PARVEZ (acute kidney injury) Code(s): N17.9 - Acute kidney failure, unspecified Status: Acute (4) DM (diabetes mellitus) Code(s): E11.9 - Type 2 diabetes mellitus without complications Status: Acute - Plan 62 years old male SIRS secondary to UTI- UA- S. Saprophyticus. History of neurogenic bladder- per patient doing self cathetrization at least 10x day for last 2 years- sterile technique- had only 1 episode of UTI since he has been doing this now when discussed with him- he wash his hands and straights cath but does not use gloves he is ff by a Urologist at [facility]- . continue on flomax - ff blood cultuires- negative - ff urine culture c and S- staph speciesS. repeat UA- clear - continue IV Zosyn - get ID consult for recommendations-d/w Dr. Gomez Pyelonephritis: CT Abd/Pelvis w/ perinephric stranding consistent w/ pyelo, - IVF,continue IV Abx. - d/w ID- PARVEZ:likely with underlying CKI- Creatinine 1.56, no previous labs for comparison, Resolved good po. DM insulin requiring- uncontrolled . Ff blood sugars. A1C- per patient last one 7.2 as OP on Lantus- 30 units bid and glipizide 5 mg bid. will start on Levemer 15 bid here bid- inccrease to 20 unis bid Hx of hyerplipidemia - cotninue on Rosuvastatin 10 mg hs Hist ory of DM neuropathy- continue Gabapentin 400 mg tid chronic pain- as OP on Percoet 10 prn for pain q 8 History of hyperlipidemia- continue on his rosuvastatin hs Some Loose stools- check C diff- negative - stools still loose slightly Continue on Lactinex- possible ab associated diarreha DVT Prophylaxis: SCD/Teds Social work for d/c planning as needed PCP_ Dr[facility] scott [facility] -r egarding po antibiotic and possible DC D/w ID- DC home on po Bactrim DS po bid x 9 days advise OP ff up with [facility]
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
--- NOTE | 2018-03-06 13:32 | P.DS ---
Date of admission: 03/01/18 19:50 Primary care physician: [facility] Attending physician on discharge: Rayo Grantchristinenhung Anticipated date of discharge: 03/06/18 Brief History from admission: This is a 62-year-old male with a PMH of HTN, DM and Neurogenic Bladder w/ Straight Cath who was referred to the ER by the [facility] for eval of UTI/ Pyelonephritis. Pt states he's been having rigors/chills x2 days w/ generalized fatigue. Was seen at the [facility] today and told he had a UTI and sent to the ER for further eval. Pt denies abdominal pain, nausea, vomiting or diarrhea. On arrival, BP 146/66, HR 104, O2 sat 98% on RA, Temp 100.4. WBC 12. Creatinine 1.56, no previous labs for comparison. Lactic Acid normal. UA positive for UTI. CXR negative. CT Abdomen/Pelvis perinephric stranding, likely pyelonephritis. S/p Zosyn IV in ER. DS: Diagnosis - Discharge Diagnosis (1) SIRS (systemic inflammatory response syndrome) Status: Acute (2) Acute pyelonephritis Status: Acute (3) PARVEZ (acute kidney injury) Status: Acute (4) DM (diabetes mellitus) Status: Acute DS: Medications - Discharge Medications Prescriptions: RX: sulfamethoxazole-trimethoprim 1 tab PO Q12HR #18 tab DS: Summary Hospital Course: 62 years old male SIRS secondary to UTI- UA- S. Saprophyticus. History of neurogenic bladder- per patient doing self cathetrization at least 10x day for last 2 years- sterile technique- had only 1 episode of UTI since he has been doing this now when discussed with him- he wash his hands and straights cath but does not use gloves he is ff by a Urologist at [facility]- . continue on flomax - ff blood cultuires- negative - ff urine culture c and S- staph speciesS. repeat UA- clear - continue IV Zosyn - get ID consult for recommendations-d/w Dr. Gomez Pyelonephritis: CT Abd/Pelvis w/ perinephric stranding consistent w/ pyelo, - IVF,continue IV Abx. - d/w ID- PARVEZ:likely with underlying CKI- Creatinine 1.56, no previous labs for comparison, Resolved good po. DM insulin requiring- uncontrolled . Ff blood sugars. A1C- per patient last one 7.2 as OP on Lantus- 30 units bid and glipizide 5 mg bid. will start on Levemer 15 bid here bid- inccrease to 20 unis bid Hx of hyerplipidemia - cotninue on Rosuvastatin 10 mg hs Hist ory of DM neuropathy- continue Gabapentin 400 mg tid chronic pain- as OP on Percoet 10 prn for pain q 8 History of hyperlipidemia- continue on his rosuvastatin hs Some Loose stools- check C diff- negative - stools still loose slightly Continue on Lactinex- possible ab associated diarreha DVT Prophylaxis: SCD/Teds Social work for d/c planning as needed PCP_ [facility] scott [facility] -r egarding po antibiotic and possible DC D/w ID- DC home on po Bactrim DS po bid x 9 days advise OP [facility] - Time Spent with Patient Total time spent providing and/or coordinating discharge services: Greater than 30 minutes - Quality: VTE Deep Vein Thrombosis/Pulmonary Embolism Present on Admission: No Exam Vital signs: Vital Signs 03/05/18 16:00 03/05/18 20:00 03/06/18 00:00 Temperature 98.0 F 98.1 F 98.2 F Pulse Rate 70 78 68 Respiratory Rate 16 18 18 Blood Pressure 164/76 H 164/77 H 132/74 Pulse Oximetry 97 95 96 03/06/18 04:00 Temperature 98.1 F Pulse Rate 70 Respiratory Rate 18 Blood Pressure 129/73 Pulse Oximetry 95 Intake & Output 03/05/18 03/06/18 03/06/18 18:59 06:59 18:59 Intake Total 660 / 660 320 / 320 50 / 50 Output Total 1500 / 1500 Balance 660 / 660 -1180 / -1180 50 / 50 Weight 93.7 kg Intake: IV 200 / 200 200 / 200 50 / 50 Zosyn 4.5 GM Premix 4.5 gm In 200 / 200 200 / 200 50 / 50 100 ml @ 200 mls/hr IV.SIG Q6H JOSE Rx#:[id number] Oral 460 / 460 120 / 120 Output: Urine 1500 / 1500 Other: # Voids 5 Date of Last Bowel Movement 03/06/18 # Bowel Movements 1 3 Narrative: awake and alert, no acute distress T down anicteric lungs- no rales regular rhythm abdomen soft, nontender abdomen soft, no CVA tenderness circumcised penis- neuro exam- unremarkable Results Procedures completed during hospitalization: none Labs on day of discharge: Labs from last 24 hours 03/06/18 03/06/18 03/05/18 11:38 07:52 20:04 POC Glucose 211 H 150 H 285 H 03/05/18 17:26 POC Glucose 208 H - Impressions ITS Impressions Chest X-Ray 03/01/18 17:28 CONCLUSION: Negative examination. Abdomen/Pelvis CT 03/01/18 19:05 CONCLUSION: 1. Nonspecific perinephric fat stranding. Differential diagnosis includes pyelonephritis given the history of such. 2. No renal calculi or obstructive uropathy. Escalera catheter in bladder. 3. Mild constipation. Moderate coronary calcifications. Discharge Plan - Discharge Disposition Patient Disposition: 01 Discharge Home - Discharge Condition Condition: Stable - Discharge Order Discharge Orders: Discharge Order (Routine); Ordered 03/06/18 Ordered By: Rayo Romero - Discharge Details Anticipated Discharge Date: 03/06/18 - Physicians Team Primary Care Provider: [facility] Attending Provider: Rayo Romero Other Providers: Amanda Gomez MD
== END 2018-03-06 15:30 | disposition home or self-care (01) ==
LOC: NEPD 15:16 → NEDA 19:50 → N04 21:10
PROVIDERS: ADMIT Internal Medicine; ATTEND Internal Medicine